=== PATIENT | male | born 1960 | race African-American/Black ===

== ENCOUNTER 2024-06-15 17:08 | Emergency (ER) | payer SELFPAY ==
[2024-06-15 17:20] VITALS: BP 139/78; PULSE 81; RESP 18; TEMP 37.2; O2SAT 100
--- NOTE | 2024-06-15 17:24 | ED.ABDPAIN ---
HPI - Abdominal Pain General Chief Complaint: Urogenital-Male Stated Complaint: STD Time Seen by Provider: 06/15/24 17:28 Source: patient, RN notes reviewed and old records reviewed Mode of arrival: ambulatory Limitations: no limitations History of Present Illness HPI narrative: Patient presents with complaints of Trich exposure. He is requesting treatment for this as well stressing for gonorrhea and chlamydia. He reports that he is asymptomatic and has no complaints today. Related Data Allergies Allergy/AdvReac Type Severity Reaction Status Date / Time No Known Allergies Allergy Verified 06/15/24 17:28 Review of Systems Review of Systems: All systems reviewed & are unremarkable except as noted in HPI and below Constitutional: Constitutional: Reports no additional constitutional complaints ENT: Reports system reviewed and no additional complaints, except as documented Cardiovascular: Cardiovascular: Reports no additional cardiovascular complaints Respiratory: Respiratory: Reports no additional respiratory complaints Gastrointestinal: Gastrointestinal: Reports no additional gastrointestinal complaints Genitourinary: Genitourinary: Reports no additional male genitourinary complaints and Reports as per HPI [facility], [facility]–1983 Comments At the time of my signature, I reviewed and agree with the nursing past medical, surgical, social, and family history. There is no relevant family history pertinent to the patient complaint. Exam Const: General: cooperative, no acute distress, alert and awake Orientation/consciousness: oriented to person, oriented to place and oriented to time HENMT: Head: normal to inspection Resp: Effort & Inspection: normal respiratory effort and able to speak in complete sentences Auscultation: clear to auscultation bilaterally, no crackles, no rales, no rhonchi and no wheezes Cardio: Palpation: normal PMI Rate: regular rate Rhythm: regular rhythm Heart sounds: S1 normal heart sound present and S2 normal heart sound present Neuro: General: oriented to person, oriented to place and oriented to time Cranial nerves: Yes CN's II-XII intact bilaterally Psych: Appearance: grossly normal Thought process: Normal thought process present Insight: Good insight present (Psych) Judgement: Good judgement present (Psych) Course Course Level of Care: Express Care Visit Vital Signs Vital signs: Vital Signs Temperature 98.9 F 06/15/24 17:20 Pulse Rate 81 06/15/24 17:20 Respiratory Rate 18 06/15/24 17:20 Blood Pressure 139/78 06/15/24 17:20 Pulse Oximetry 100 10/26/24 17:20 Oxygen Delivery Room Air 06/15/24 17:20 Temperature 98.9 F 06/15/24 17:20 Pulse Rate 81 06/15/24 17:20 Respiratory Rate 18 06/15/24 17:20 Blood Pressure 139/78 06/15/24 17:20 Pulse Oximetry 100 06/15/24 17:20 Oxygen Delivery Room Air 06/15/24 17:20 Reviewed MDM - Abdominal Pain MDM Narrative Medical decision making narrative: Asymptomatic patient requesting STI testing. Explained to patient that testing today is limited to gonorrhea, chlamydia, trich. He reports that he does have knowledge of a positive exposure to trick. Discharged home with Flagyl prescription. Advised to follow with primary care provider. Emergency department for new or worse symptoms. Discharge instructions reviewed with patient, as well as provided in writing per nursing staff. The instructions also include specific and strict return/GO TO THE ER as well as f/u information. All questions have been answered, and the patient deny any further questions with discharge and discharge plan. Some parts of this dictation were generated by voice recognition software and may contain typographical and/or grammatical inaccuracies. Differential Diagnosis Differential diagnosis: Likely other (Gonorrhea, chlamydia, trich) Medical Records Attestation: I reviewed the patient's medical records. Discharge Plan Discharge Clinical Impression: infection, trichomonal Patient Disposition: Home, Self-Care Condition: Stable Instructions: Antibiotic Form, Safe Sex Practices (ED) Additional Instructions: Take all medications as prescribed, follow-up with primary care provider. Emergency department for new or worse symptoms Patient Language: Luxembourgish Prescriptions: New metronidazole 500 mg tablet 500 mg PO Q12H Qty: 14 0RF Follow-up/Referrals: PHYSICIAN,PLANNING SUPERVISOR [Primary Care Provider] - Time of Disposition: 17:37
[2024-06-16 15:45] LABS: Trichomonas Vag PCR NOT DETECTED (NOT DETECTE)
[2024-06-16 16:10] LABS: Chlamydia trachomatis NOT DETECTED (NOT DETECTE); Neisseria gonorrhoeae PCR NOT DETECTED (NOT DETECTE)
== END 2024-06-15 17:40 | disposition home or self-care (01) ==
PROVIDERS: Emergency Provider Nurse Practitioner Family
DX: A59.00 Urogenital trichomoniasis, unspecified (principal)
CPT/HCPCS: 87491; 87591; 87661; 99203; G0463